=== PATIENT | male | born 1970 | race Caucasian/White ===

== ENCOUNTER 2018-02-07 11:51 | Emergency (ER) | payer MEDICAID ==
[~2018-02-07] VITALS: Ht 167.6 cm; Wt 87.5 kg
[2018-02-07 11:58] VITALS: BP 131/91
--- NOTE | 2018-02-07 12:01 | NUR ---
PATIENT AMBULATED TO BED 1.
--- NOTE | 2018-02-07 12:10 | NUR ---
47M BIB WITH C/O 10/10 CONSTANT "PRESSURE" RECTAL PAIN X YESTERDAY, WORSE WHILE SITTING. PT ALSO REPORT OF "STREAKS" OF BRIGHT RED BLOOD WHEN WIPING AFTER USING RESTROOM. PT STS POSSIBLE HX OF HEMORRHOIDS. PT DENIES ANY RECENT INJURY OR TRAUMA TO BUTTOCK. PT IS AOX4 WITH STEADY GAIT. SKIN WARM/PINK/DRY. RR ARE EVEN AND UNLABORED. NO ACUTE DISTRESS AT THIS TIME. AWAITING ER MD CLEMENS. ALL NEEDS MET AT THIS TIME. WILL CONTINUE TO MONITOR.
[2018-02-07] MEDS ORDERED: LIDOCAINE MPF 1% - **ER/OR** 10 ML ONE (12:34)
--- NOTE | 2018-02-07 13:00 | NUR ---
I&D Procedure done by Dr. Ram . Moderate amt of bleeding noted. Pt tolerated procedure well. Wound care discussed w/ patient.
[2018-02-07] MEDS: LIDOCAINE 1% 500 MG/50 ML VIAL INJ SCH (13:12)
[2018-02-07 13:15] VITALS: BP 132/87
--- NOTE | 2018-02-07 13:15 | NUR ---
Patient discharged with v/s stable. Written and verbal after care instructions given and explained. Patient alert, oriented and verbalized understanding of instructions. Ambulatory with steady gait. All questions addressed prior to discharge. ID band removed. Patient advised to follow up with PMD. Rx of Keflex, Bactrium, Motrin, and Bactrim given. Patient educated on indication of medication including possible reaction and side effects. Opportunity to ask questions provided and answered.
== END 2018-02-07 13:15 | disposition home or self-care (01) ==
LOC: MED 11:51
DX: K61.1 Rectal abscess (principal)
CPT/HCPCS: 10060; 99283; J2001